=== PATIENT | male | born 1960 | race Caucasian/White ===

== ENCOUNTER → 2024-08-11 07:39 | Outpatient (REF) | payer BC, SELFPAY ==
[2024-08-11 08:17] LABS: % Basophils 0.9 % (0-2); % Eosinophils 3.2 % (0-6); % Immature Granulocytes 0.7 % (0-0.5); % Lymphocytes 20.3 % (20.5-51.1); % Monocytes 8.1 % (1.7-9.3); % Neutrophils 66.8 % (42.2-75.2); Absolute Basophils 0.1 10^3/uL (0-0.2); Absolute Eosinophils 0.2 10^3/uL (0-0.7); Absolute Immature Granulocytes 0.1 10^3/uL (0-0.05); Absolute Lymphocytes 1.5 10^3/uL (1.2-3.4); Absolute Monocytes 0.6 10^3/uL (0.1-0.6); Hematocrit 49.2 % (39.0-52.0); Hemoglobin 16.6 g/dL (13.0-18.0); Mean Corp Hgb Conc. 33.7 g/dL (33.0-37.0); Mean Corpuscular Hgb 28.6 pg (27.0-31.0); Mean Corpuscular Volume 84.8 fL (80.0-94.0); Mean Platelet Volume 11.3 fL (7.4-10.4); Nucleated Red Blood Cells % 0 % (-); Platelet Count 240 10^3/uL (130-400); Red Cell Dist. Width 14.3 % (11.5-14.5); White Blood Cell Count 7.5 10^3/uL (4.8-10.8)
[2024-08-11 08:56] LABS: ALT (SGPT) 46 U/L (0-50); AST (SGOT) 35 U/L (17-59); Albumin 4.8 g/dl (3.5-5.0); Alkaline Phosphatase 57 U/L (38-126); Blood Urea Nitrogen 23 mg/dl (9-20); Carbon Dioxide 29 mmol/L (22-30); Chloride 104 mmol/L (98-107); Glucose 195 mg/dl (70-99); HDL Cholesterol 39 mg/dl; LDL Cholesterol, Calculated 101 mg/dl; Potassium 4.4 mmol/L (3.5-5.1); Sodium 145 mmol/L (135-145); Total Bilirubin 0.6 mg/dl (0.2-1.3); Total Cholesterol 191 mg/dl (50-199); Total Protein 7.1 g/dl (6.3-8.2); Triglyceride 256 mg/dl (10-149); Uric Acid 5.3 mg/dl (3.5-8.5); Very Low Density Lipoprotein 51 mg/dl (0-30); eGFR > 60.00
== END ==
LOC: REG 07:39
PROVIDERS: ATTENDING PHYSICIAN Family Medicine
DX: E11.610 Type 2 diabetes mellitus with diabetic neuropathic arthropathy (principal); M10.9 Gout, unspecified; E78.2 Mixed hyperlipidemia; R53.83 Other fatigue
CPT/HCPCS: 36415; 80053; 80061; 83036; 84550; 85025

== ENCOUNTER → 2025-01-01 06:46 | Outpatient (REF) | payer BC, SELFPAY ==
[2025-01-01 08:18] LABS: PSA, Total - Screen 7.52 ng/ml (0.0-4.0)
[2025-01-01 08:22] LABS: % Basophils 0.6 % (0-2); % Eosinophils 3.1 % (0-6); % Lymphocytes 19.7 % (20.5-51.1); % Monocytes 7.9 % (1.7-9.3); % Neutrophils 67.7 % (42.2-75.2); Absolute Basophils 0.1 10^3/uL (0-0.2); Absolute Eosinophils 0.3 10^3/uL (0-0.7); Absolute Immature Granulocytes 0.1 10^3/uL (0-0.05); Absolute Lymphocytes 1.6 10^3/uL (1.2-3.4); Absolute Monocytes 0.6 10^3/uL (0.1-0.6); Absolute Neutrophils 5.5 10^3/uL (1.4-6.5); Hematocrit 51.7 % (39.0-52.0); Hemoglobin 17.4 g/dL (13.0-18.0); Mean Corp Hgb Conc. 33.7 g/dL (33.0-37.0); Mean Corpuscular Hgb 28.5 pg (27.0-31.0); Mean Corpuscular Volume 84.6 fL (80.0-94.0); Mean Platelet Volume 10.9 fL (7.4-10.4); Nucleated Red Blood Cells % 0 % (-); Platelet Count 216 10^3/uL (130-400); Red Blood Cell Count 6.11 10^6/uL (4.70-6.10); Red Cell Dist. Width 14.4 % (11.5-14.5); White Blood Cell Count 8.1 10^3/uL (4.8-10.8)
[2025-01-01 08:48] LABS: Microalbumin, Random Urine 1.8 mg/dl (0.6-1.7); Microalbumin/creatinine Ratio 25.7 mg/g
[2025-01-01 08:52] LABS: ALT (SGPT) 39 U/L (0-50); AST (SGOT) 30 U/L (17-59); Albumin 4.5 g/dl (3.5-5.0); Alkaline Phosphatase 72 U/L (38-126); Blood Urea Nitrogen 24 mg/dl (9-20); Calcium 9.7 mg/dl (8.4-10.2); Carbon Dioxide 26 mmol/L (22-30); Chloride 109 mmol/L (98-107); Glucose 193 mg/dl (70-99); HDL Cholesterol 37 mg/dl; LDL Cholesterol, Calculated 94 mg/dl; Potassium 4.7 mmol/L (3.5-5.1); Sodium 145 mmol/L (135-145); Total Bilirubin 0.8 mg/dl (0.2-1.3); Total Cholesterol 188 mg/dl (50-199); Triglyceride 288 mg/dl (10-149); Very Low Density Lipoprotein 57 mg/dl (0-30); eGFR > 60.00
[2025-01-01 09:44] LABS: Glycohemoglobin (HgbA1c) 8.6 % (4.0-5.6)
== END ==
LOC: REG 06:46
PROVIDERS: ATTENDING PHYSICIAN Family Medicine
DX: Z12.5 Encounter for screening for malignant neoplasm of prostate (principal); E11.65 Type 2 diabetes mellitus with hyperglycemia; E78.2 Mixed hyperlipidemia; R53.83 Other fatigue
CPT/HCPCS: 36415; 80053; 80061; 82043; 82570; 83036; 85025; G0103

== ENCOUNTER → 2025-03-06 11:03 | Outpatient (REF) | payer BC, SELFPAY ==
[2025-03-06 12:00] LABS: Urine Albumin 1+ (Neg - Trace); Urine Bilirubin Negative (Negative); Urine Character Clear (Clear); Urine Color Yellow; Urine Glucose 4+ (Negative); Urine Ketone Negative (Negative); Urine Leukocyte Negative (Negative); Urine Nitrite Negative (Negative); Urine Occult Blood Negative (Negative); Urine Urobilinogen Negative (Neg - 1+)
[2025-03-06 12:16] LABS: Urine White Cell 0-2 /HPF (0-5)
[2025-03-06 12:17] LABS: Urine Red Blood Cell None Seen /HPF (0-2); Urine Squamous Cell 0-2 /LPF (Few)
[2025-03-06 14:54] LABS: PSA, Total - Diagnostic 5.93 ng/ml (0.0-4.0)
== END ==
LOC: REG 11:03
PROVIDERS: ATTENDING PHYSICIAN Specialist; FAMILY PHYSICIAN Family Medicine
DX: R97.20 Elevated prostate specific antigen [PSA] (principal)
CPT/HCPCS: 36415; 81003; 81015; 84153

== ENCOUNTER → 2025-03-27 10:57 | Outpatient (REF) | payer BC, SELFPAY | LOC: CLAB 10:57 | PROVIDERS: ATTENDING PHYSICIAN Specialist | DX: R97.20 Elevated prostate specific antigen [PSA] (principal) | CPT/HCPCS: 88305 ==

== ENCOUNTER → 2025-08-28 07:02 | Outpatient (REF) | payer BC, SELFPAY ==
[2025-08-28 08:14] LABS: Hematocrit 48.6 % (39.0-52.0); Hemoglobin 16.0 g/dL (13.0-18.0); Mean Corp Hgb Conc. 32.9 g/dL (33.0-37.0); Mean Corpuscular Volume 87.1 fL (80.0-94.0); Nucleated Red Blood Cells % 0 % (-); Platelet Count 217 10^3/uL (130-400); Red Cell Dist. Width 14.3 % (11.5-14.5)
[2025-08-28 08:50] LABS: Glycohemoglobin (HgbA1c) 6.0 % (4.0-5.9)
[2025-08-28 08:54] LABS: ALT (SGPT) 32 U/L (0-50); AST (SGOT) 27 U/L (17-59); Albumin 4.9 g/dl (3.5-5.0); Alkaline Phosphatase 48 U/L (38-126); Blood Urea Nitrogen 27 mg/dl (9-20); Calcium 9.8 mg/dl (8.4-10.2); Carbon Dioxide 25 mmol/L (22-30); Chloride 107 mmol/L (98-107); Glucose 120 mg/dl (70-99); Total Protein 7.5 g/dl (6.3-8.2); Uric Acid 5.9 mg/dl (3.5-8.5); Very Low Density Lipoprotein 42 mg/dl (0-30); eGFR > 60.00
[2025-08-28 09:10] LABS: HDL Cholesterol 41 mg/dl; LDL Cholesterol, Calculated 130 mg/dl; Potassium 4.7 mmol/L (3.5-5.1); Sodium 141 mmol/L (135-145)
== END ==
LOC: REG 07:02
PROVIDERS: ATTENDING PHYSICIAN Family Medicine
DX: Z13.29 Encounter for screening for other suspected endocrine disorder (principal); E11.65 Type 2 diabetes mellitus with hyperglycemia; M10.9 Gout, unspecified; E78.2 Mixed hyperlipidemia; R53.83 Other fatigue
CPT/HCPCS: 36415; 80053; 80061; 83036; 84443; 84550; 85025